=== PATIENT | male | born 1995 | race African-American/Black ===

== ENCOUNTER 2024-08-31 20:16 | Emergency (ER) | payer OTHER ==
[~2024-08-31] VITALS: Ht 175.3 cm; Wt 61.6 kg
[2024-08-31 20:18] VITALS: TEMP 36.6; O2SAT 99
[2024-08-31 21:19] LABS: BASOPHILS % 0.6 % (0.0-2.0); EOSINOPHILS % 2.6 % (0.0-5.0); HEMATOCRIT. 44.8 % (42.0-52.0); HEMOGLOBIN. 14.6 g/dL (14.0-18.0); LYMPHOCYTES % 27.9 % (20.0-50.0); MEAN CORPUSCULAR HEMOGLOBIN 27.7 pg (28.0-32.0); MEAN CORPUSCULAR HGB CONC 32.6 g/dL (31.0-37.0); MEAN CORPUSCULAR VOLUME 84.9 fL (80.0-94.0); MEAN PLATELET VOLUME 9.2 fl (7.4-10.4); NEUTROPHILS % 62.9 % (40.0-76.0); PLATELET 186 x1000/uL (130-400); RED BLOOD CELL COUNT 5.27 mill/uL (4.7-6.1); RED CELL DISTRIBUTION WIDTH 12.8 % (11.6-14.6); WHITE BLOOD COUNT 6.8 x1000/uL (4.5-11.0)
[2024-08-31 21:25] LABS: CHLORIDE 104 mEq/L (98-107); POTASSIUM 3.7 mEq/L (3.5-5.1); SODIUM 139 mEq/L (136-145)
[2024-08-31 21:26] LABS: CARBON DIOXIDE 26 mEq/L (21-32)
[2024-08-31 21:27] LABS: CALCIUM 9.7 mg/dL (8.7-10.4)
[2024-08-31 21:32] LABS: CREATININE 0.9 mg/dL (0.6-1.3); GLUCOSE 93 mg/dL (70-105); UREA NITROGEN BLOOD 14 mg/dL (9-23)
[2024-08-31 21:34] LABS: TROPONIN I HIGH SENSITIVITY < 4 ng/L (3.0-53)
[2024-08-31 22:18] VITALS: BP 111/70; PULSE 63; RESP 16; O2SAT 99
== END 2024-08-31 22:21 | disposition home or self-care (01) ==
LOC: ER 20:16
DX: R06.02 Shortness of breath (principal); R00.2 Palpitations; R05.1 Acute cough; Z98.890 Other specified postprocedural states
CPT/HCPCS: 36415; 71045; 80048; 84443; 84484; 85025; 85379; 93005; 99285